=== PATIENT | female | born 1960 | race Caucasian/White ===

== ENCOUNTER → 2017-06-19 | Outpatient (CLI) | payer OTHER ==
[~2017-06-19] MED LIST: CEPHALEXIN500 M1 PO; HCTZ PO; LOTENSIN PO; MULTIPLE VITAMI1 CAP PO; NORCO 325 MG-51 TAB PO; VITAMIN D2000 I1 PO; ZOCOR PO
== END ==
LOC: COL.RAD 12:26
DX: N85.2 Hypertrophy of uterus (principal)